=== PATIENT | female | born 1985 | race Hispanic/Latino ===

== ENCOUNTER 2016-11-09 20:39 | Emergency (ER) | payer OTHER ==
[~2016-11-09] VITALS: Ht 152.4 cm; Wt 70.8 kg
[~2016-11-09 20:39] MED LIST: COLA100C3 PO; MOTR200T44 PO; PERCOCET PO
[2016-11-10] MEDS ORDERED: IBUP600T26 PO (00:59)
[2016-11-10] MEDS ORDERED: IBUPROFEN 800 MG TAB PO ONE (01:00)
[2016-11-10 01:28] VITALS: BP 116/64
--- NOTE | 2016-11-10 08:07 | REP ---
Clinical: Trauma. Swelling. Technique: AP, lateral, bilateral oblique and sunrise views. Findings: The osseous structures and joint spaces are intact and normal for age. There is no evidence for acute fracture or dislocation. No definite joint effusion is appreciated. Surrounding soft tissues are unremarkable. No subcutaneous emphysema or radiodense foreign body. Impression: No acute fracture or dislocation. Signed by Niall Ortiz MD 11/10/2016 07:58 A
== END 2016-11-10 01:29 | disposition home or self-care (01) ==
LOC: M ED 22:21
DX: S83.411A Sprain of medial collateral ligament of right knee, initial encounter (principal); X50.9XXA Other and unspecified overexertion or strenuous movements or postures, initial encounter; Y92.019 Unspecified place in single-family (private) house as the place of occurrence of the external cause; Y93.89 Activity, other specified; Y99.9 Unspecified external cause status